=== PATIENT | male | born 1950 | race Caucasian/White ===

== ENCOUNTER → 2020-08-27 | Outpatient (CLI) | payer MEDICARE, OTHER ==
--- NOTE | 2020-08-28 09:08 | CT ---
EXAM DESCRIPTION: Abdoment/Pelvis w/o Contrast CLINICAL HISTORY: 70 years Male, CHRONIC KIDNEY DISEASE, STAGE 4 COMPARISON: 11 May 2020 TECHNIQUE: Transaxial images were obtained without intravenous or oral contrast media. Sagittal and coronal reconstruction was performed.This exam was performed according to our departmental dose-optimization program, which includes automated exposure control, adjustment of the mA and/or kV according to patient size and/or use of iterative reconstruction technique. FINDINGS: Parenchymal scarring is observed in the lung bases. The liver and spleen are unremarkable. No biliary ductal dilatation is observed. The gallbladder appears contracted. No stones are seen. A hiatus hernia is observed. No adrenal masses are detected. The exam reveals atrophy of the right kidney. Bilateral cysts are observed. No calcifications are observed. No hydronephrosis is seen. Calcific atherosclerotic changes observed in the abdominal aorta without evidence of aneurysmal dilatation. The pancreas is unremarkable. The exam reveals evidence of bowel surgery in the right lower quadrant. The patient is post cystectomy. Ileal conduit is observed in the right lower quadrant. Diverticulosis of the colon is observed without evidence of diverticulitis. No free pelvic fluid is observed. A penile prosthesis is observed in place. Degenerative changes are observed in the lumbar spine. There is a left lumbar scoliosis. IMPRESSION: 1. Hiatus hernia. 2. Marked right renal atrophy is observed. Bilateral renal cysts are observed. 3. The patient is post cystectomy. An ileal conduit is observed. 4. Uncomplicated diverticulosis of the colon. 5. No urinary tract calcifications are observed. No interval changes observed from the previous exam. Electronically signed by: Marshall Joy MD 08/28/2020 9:07 AM CDT
== END ==
LOC: CT 13:30
PROVIDERS: ATTEND Internal Medicine Nephrology
DX: N18.4 Chronic kidney disease, stage 4 (severe) (principal); N26.1 Atrophy of kidney (terminal); N28.1 Cyst of kidney, acquired; K44.9 Diaphragmatic hernia without obstruction or gangrene; Z98.890 Other specified postprocedural states; K57.30 Diverticulosis of large intestine without perforation or abscess without bleeding

== ENCOUNTER → 2020-08-28 | Outpatient (CLI) | payer MEDICARE, OTHER | LOC: LAB.O 09:01 | PROVIDERS: ATTEND Internal Medicine Nephrology | DX: N18.4 Chronic kidney disease, stage 4 (severe) (principal) ==